=== PATIENT | male | born 1980 ===

== ENCOUNTER 2021-10-22 05:55 | Day surgery (SDC) | payer OTHER ==
[2021-10-22] MEDS ORDERED: LACTATED RINGERS 1,000 ML ONE (06:48)
[2021-10-22] MEDS ORDERED: ceFAZolin/Water 2 GM/20 ML 2 GM/20 ML SYRINGE IV ONE (06:48)
[2021-10-22] MEDS ORDERED: HYDROmorphone 1 MG/1 ML INJ IV PRN ×2 (07:44)
[2021-10-22] MEDS ORDERED: ONDANSETRON 4 MG/2 ML INJ IV PRN (07:44)
--- NOTE | 2021-10-22 07:45 | Anesthesia Day of Surgery ---
Anesthesia Day of Surgery - Day of Surgery Patient Examined: Yes Patient H&P Reviewed: Yes Patient is NPO: Yes
[2021-10-22] MEDS ORDERED: LIDOCAINE MPF (2%) 20 MG/1 ML VIAL 5 ML ONE (07:46)
[2021-10-22] MEDS ORDERED: fentaNYL 100 MCG/2 ML INJ ONE (07:46)
[2021-10-22] MEDS ORDERED: propofoL 200 MG/20 ML VIAL IV ONE (07:47)
--- NOTE | 2021-10-22 07:47 | Anesthesia Consultation ---
Anesthesia Consult and Med Hx Date of service: 10/22/21 - Airway Anesthetic Teeth Evaluation: Good ROM Head & Neck: Adequate Mental/Hyoid Distance: Adequate Mallampati Class: Class II Intubation Access Assessment: Probably Good - Pre-Operative Health Status ASA Pre-Surgery Classification: ASA1 Proposed Anesthetic Plan: General - Pulmonary Hx Smoking: No Hx Sleep Apnea: No (CATHIE PRE SCREEN LOW RISK) - Cardiovascular System Hx Hypertension: No - Central Nervous System Hx Back Pain: Yes Hx Psychiatric Problems: No - Hematic Hx Anemia: No - Other Systems Hx Cancer: No - Additional Comments Anesthesia Medical History Comments: Nephew present to translate
[2021-10-22] MEDS ORDERED: LACTATED RINGERS 1,000 ML IV SCH (08:00)
[2021-10-22] MEDS ORDERED: HYDROmorphone 1 MG/1 ML INJ ONE (08:29)
[2021-10-22] MEDS ORDERED: SODIUM CHLORIDE 0.9% IRR 1,500 ML BOTTLE IR ONE (08:35)
--- NOTE | 2021-10-22 09:00 | Short Stay Summary ---
Short Stay Documentation Date of service: 10/22/21 - History H&P: obtained from office - Allergies and Medications Current Medications: Allergies No Known Allergies Allergy (Verified 10/18/21 09:23) Home Medications Medication Instructions Recorded Confirmed Last Taken Type Gabapentin 300 mg PO DAILY 10/18/21 10/18/21 Unknown History Active Medications Hydromorphone HCl (Hydromorphone 1 Mg/1 Ml Inj) 0.25 mg IV Q10MIN PRN PRN Reason: Pain, Moderate (4-6) Stop: 10/22/21 20:00 Hydromorphone HCl (Hydromorphone 1 Mg/1 Ml Inj) 0.5 mg IV Q10MIN PRN PRN Reason: Pain , Severe (7-10) Stop: 10/22/21 20:00 Lactated Ringer's (Lactated Ringers) 1,000 mls @ 125 mls/hr IV DIRECT EUNICE Ondansetron HCl (Ondansetron 4 Mg/2 Ml Inj) 4 mg IV ONCE PRN PRN Reason: Nausea And Vomiting Stop: 10/22/21 10:00 - Brief post op/procedure progress note Date of procedure: 10/22/21 Pre-op diagnosis: phimosis Post-op diagnosis: same Procedure: circ Anesthesia: GETA Surgeon: YONAS HAYWOOD Pathology: list Specimen disposition: to lab Condition: stable - Hospital course Hospital course: ultram & norco on chart, keep appt - Disposition Condition at discharge: Stable Disposition: 01 HOME / SELF CARE / HOMELESS Short Stay Discharge Plan Follow up with: JOHN MCKENNA MD [Primary Care Provider] - 7 Days
[2021-10-22] MEDS ORDERED: dexAMETHasone 20 MG/5 ML VIAL ONE (09:09)
--- NOTE | 2021-10-22 10:05 | Operative Report ---
DATE OF SURGERY: 10/22/2021 PREOPERATIVE DIAGNOSIS: Phimosis. POSTOPERATIVE DIAGNOSIS: Phimosis. PROCEDURE: Circumcision. SURGEON: Cm Raman M.D. ANESTHESIA: General. ESTIMATED BLOOD LOSS: Minimal. FLUIDS: Crystalloid. COMPLICATIONS: No complications. INDICATIONS: This patient is a 41-year-old gentleman seen in the office with a cracking and irritation of his foreskin despite Diflucan. Risks, benefits, complications were explained. The patient agreed to proceed with surgical intervention. DESCRIPTION OF PROCEDURE: The patient was taken to the operative suite, placed in a supine position. After adequate general anesthesia, he was prepped and draped in a sterile fashion. Foreskin was marked at the level of the coronal ridge. Dorsal and ventral slit was made. Foreskin was circumferentially removed and sent for routine pathologic evaluation. Proximal shaft skin was retracted. Adequate hemostasis was achieved. Proximal and distal shaft skin was reapproximated and closed with a 3-0 chromic in an interrupted fashion. Xeroform gauze was placed on the incision. Antoinette as well as a Coban. The patient tolerated the procedure well and was extubated and taken to recovery room. He will go home on Ouner and Totsy and follow up in the office. TID: [id number] RECEIPT: [id number] Theresa/DAIR/DASIA
--- NOTE | 2021-10-22 12:56 | Post Anesthesia Evaluation ---
- Post Anesthesia Evaluation Patient Participated: Yes Airway Patent: Yes Stable Respiratory Function: Yes Nausea/Vomiting: No Temp > 96.8F: Yes Pain Manageable: Yes Adequeate Hydration: Yes Anesthesia Complications: No Block Receding Appropriately: Not Applicable Patient on Ventilator: No
[2021-10-22 17:42] VITALS: BP 138/71
== END 2021-10-22 09:30 | disposition home or self-care (01) ==
LOC: OR 05:55
PROVIDERS: ATTEND Urology
DX: N47.1 Phimosis (principal); E78.00 Pure hypercholesterolemia, unspecified; Z79.899 Other long term (current) drug therapy; Z98.890 Other specified postprocedural states
CPT/HCPCS: 54161; 88304; J0690; J1100; J1170; J2405; J2704; J3010; J3490; J7120